=== PATIENT | female | born 1975 | race Caucasian/White ===

== ENCOUNTER 2019-08-20 10:23 | Emergency (ER) | payer BC, OTHER ==
[~2019-08-20] VITALS: Ht 162.6 cm; Wt 69.0 kg
[2019-08-20] MEDS ORDERED: ACETAMINOPHEN WITH CODEINE 300/30MG TABLET PO ONE (12:00)
[2019-08-20 13:18] VITALS: BP 123/76
== END 2019-08-20 13:25 | disposition home or self-care (01) ==
LOC: ER 10:23
DX: S09.8XXA Other specified injuries of head, initial encounter (principal); M54.2 Cervicalgia; V49.49XA Driver injured in collision with other motor vehicles in traffic accident, initial encounter; Y93.89 Activity, other specified; Y92.410 Unspecified street and highway as the place of occurrence of the external cause
CPT/HCPCS: 99284